=== PATIENT | male | born 1960 | race Caucasian/White ===

== ENCOUNTER 2017-12-24 12:11 | Day surgery (SDC) | payer OTHER ==
[~2017-12-24 12:11] MED LIST: ACETAMINOPHEN 1,000 MG/100 ML BTL IV ONE
[2017-12-24] MEDS ORDERED: LIDOCAINE 2% MDV (20MG/ML) 20ML VIAL IV ONE (12:12)
[2017-12-24] MEDS ORDERED: PROPOFOL 10 MG/ML VIAL IV ONE (12:12)
[2017-12-24] MEDS ORDERED: ONDANSETRON HCL IV 4 MG/2 ML VIAL IVP ONE (12:12)
[2017-12-24] MEDS ORDERED: KETOROLAC 30 MG/ML VIAL IVP ONE (12:12)
[2017-12-24] MEDS ORDERED: FENTANYL PF 100MCG/2ML VIAL IV ONE (12:12)
[2017-12-24] MEDS ORDERED: SEVOFLURANE 250 ML INH ONE (12:12)
--- NOTE | 2017-12-25 12:30 | Operative Note ---
DATE OF SURGERY: 12/24/2017 Surgeon: Scott Perales D.O. REFERRING PHYSICIAN: Oscar Crenshaw D.O. PREOPERATIVE DIAGNOSES: 1. Torn medial meniscus of the right knee. 2. Osteoarthritis, right knee. POSTOPERATIVE DIAGNOSES: 1. Torn medial meniscus and lateral meniscus, right knee. 2. Synovitis, right knee (two compartments). 3. Chondromalacia of the medial femoral condyle and patella, right knee. OPERATION: 1. Arthroscopic partial medial and lateral meniscectomy, right knee. 2. Arthroscopic partial synovectomy, right knee, two compartments. 3. Arthroscopic chondroplasty, medial femoral condyle and patella, right knee PROCEDURE: This 57-year-old male was taken to the operating room and placed in the supine position on the operating room table. A general anesthetic was administered, and the right lower extremity was elevated. It was exsanguinated and tourniquet inflated to 300 mm Hg. Arthroscopic knee ramirez applied. Right knee was prepped with Hibiclens and draped in the usual sterile fashion. An inferolateral portal was established with a 4 mm arthroscope, and initial evaluation of the joint demonstrated normal appearance of the suprapatellar pouch. The patient did have grade 3 chondromalacia of the entire articulating surface of the patella, but the trochlea actually did not appear too bad, and chondroplasty was performed of the patella to stabilize the articular cartilage through an inferomedial portal. As we scanned down the medial gutter there was synovitis present, and plica was also noted. This was resected. At about the level of the meniscal rest there was a hypertrophic bony lesion of the very medial edge of the medial femoral condyle, which was somewhat enlarged. Below that there were extensive grade 3 changes with no normal articular cartilage in the weight-bearing surface. The patient also had a severe tear of the posterior horn and body of the medial meniscus, which started at approximately the 12 o'clock position and was torn all the way around to about the 3 o'clock position, going to the meniscal synovial junction at about the 1:30 position. We used the basket forceps and rotating shaver to smooth, trim, and balance the meniscus to stabilize the edges. It was then reprobed and confirmed to be stable. The intercondylar notch was examined and found to be normal. The lateral compartment was entered. No articular cartilage lesions were noted on the lateral femoral condyle, and the lateral meniscus demonstrated a tear near the posterior attachment. A degenerative-type tear was present at approximately the 1:30 position. This was relatively shallow, though, being approximately 3-4 mm deep. We resected unstable fragments of the meniscus and then reprobed the remainder of the lateral meniscus and did not find any further pathology. The wound was copiously irrigated with lactated Ringer solution. There was also extensive synovitis in the medial compartment, and in the patellofemoral articulation, and to a lesser degree in the lateral compartment, and partial synovectomy was performed. The joint was copiously irrigated and suctioned, instruments were removed, and the portals infiltrated with 0.25% Marcaine with epinephrine. We placed 4-0 nylon sutures in the portals and sterile dressings applied, tourniquet and knee ramirez released, and the patient was taken to the recovery room in satisfactory condition. GROSS PATHOLOGY: This patient demonstrated severe grade 3 chondromalacia from the meniscal rest all the way as far posterior as could be seen in the medial femoral condyle and also grade 3 changes noted at the patella. Extensive synovitis with a medial plica was also present, as described above. There was a complex tear of the posterior horn of the medial meniscus, and a small degenerative-type tear of the lateral meniscus was noted. MTDD
== END 2017-12-24 15:50 | disposition home or self-care (01) ==
LOC: SUR 12:11
PROVIDERS: ATTEND Orthopaedic Surgery
DX: M23.221 Derangement of posterior horn of medial meniscus due to old tear or injury, right knee (principal); M23.261 Derangement of other lateral meniscus due to old tear or injury, right knee; M65.9 Synovitis and tenosynovitis, unspecified; M22.41 Chondromalacia patellae, right knee; E11.9 Type 2 diabetes mellitus without complications; Z79.4 Long term (current) use of insulin; Z79.84 Long term (current) use of oral hypoglycemic drugs; I25.10 Atherosclerotic heart disease of native coronary artery without angina pectoris; E78.00 Pure hypercholesterolemia, unspecified
CPT/HCPCS: 29880; 29876; 01400; J1885; J2405; J3010